=== PATIENT | female | born 1985 | race American Indian/Alaskan Native ===

== ENCOUNTER 2018-08-25 16:27 | Emergency (ER) | payer OTHER ==
[2018-08-25 17:27] VITALS: BMI 40.8
[2018-08-25] MEDS ORDERED: Sodium Chloride 0.9% 1,000 ML IV STA (17:41)
[2018-08-25 18:47] LABS: BASO # 0.02 K/mm3 (0.0-2.0); BASO % 0.2 % (0.0-3.0); EOS # 0.2 (0.0-0.7); EOS % 2.2 % (1.5-5.0); GRAN # 6.13 (1.4-6.5); GRAN % 69.5 % (50.0-68.0); HEMOGLOBIN 15.3 g/dL (12.0-16.0); LYMPH % 22.9 % (22.0-35.0); MEAN CELL VOLUME 88.3 fl (80.0-105.0); MEAN CORPUSCULAR HEMOGLOBIN 29.7 pg (25.0-35.0); MEAN CORPUSCULAR HGB CONC 33.6 g/dl (31.0-37.0); MEAN PLATELET VOLUME 10.8 fl (7.0-11.0); MONO # 0.5 (0.1-0.6); MONO % 5.2 % (1.0-6.0); RBC 5.15 10^6/uL (3.5-6.1); RED CELL DISTRIBUTION WIDTH 13.2 % (11.5-14.5); WHITE BLOOD COUNT 8.8 10^3/ul (4.5-11.0)
[2018-08-25 19:00] LABS: ALB/GLOB RATIO 1.3 (1.1-1.8); ALT/SGPT 43 U/L (7-56); AST/SGOT 36 U/L (14-36); BLOOD UREA NITROGEN 7 mg/dL (7-21); CALCIUM 9.6 mg/dL (8.4-10.5); GFR NON-AFRICAN AMERICAN > 60
[2018-08-25 19:10] LABS: TROPONIN I < 0.01 ng/mL
--- NOTE | 2018-08-25 19:25 | ED PDOC ---
Arrival/HPI <Lester Weir - Last Filed: 08/25/18 22:01> - General Historian: Patient <Flaco Dang A - Last Filed: 08/26/18 17:24> - General Chief Complaint: Dizziness/Lightheaded Time Seen by Provider: 08/25/18 17:11 - History of Present Illness Narrative History of Present Illness (Text): 08/25/18 19:22 33yo morbidly obese female with no pmhx who is s/p gastric sleeve #11days present with complaining of dizziness. States she was instructed to drink plenty of fluid,s but has been sleeping a lot, preventing her to drink fluids and thinks she is dehydrated. she has reported nausea that started for days now. states she spoke with her surgeon and was instructed to go to a nearby hospital to be evaluated for possible dehydration. She however denies abdominal pain, fev er, chills, discharge from surgry site, headache, chest pain, SOB, diaphoresis, Le edmea, calf pain, visual cahnges, any otehr complaint. (Lester Weir) 08/25/18 19:22 33yo morbidly obese female with no pmhx who is s/p gastric sleeve #11days present with complaining of dizziness. States she was instructed to drink plenty of fluid,s but has been sleeping a lot, preventing her to drink fluids and thinks she is dehydrated. she has reported nausea that started for days now. states she spoke with her surgeon and was instructed to go to a nearby hospital to be evaluated for possible dehydration. She however denies abdominal pain, fever, chills, discharge from surgry site, headache, chest pain, SOB, diaphoresis, Le edmea, calf pain, visual cahnges, any otehr complaint. (Flaco Dang A) Past Medical History - Provider Review Nursing Documentation Reviewed: Yes - Psychiatric Hx Substance Use: No - Surgical History Hx Cholecystectomy: Yes <Flaco Dang - Last Filed: 08/26/18 17:24> Family/Social History - Physician Review Nursing Documentation Reviewed: Yes Family/Social History: Unknown Family HX Smoking Status: Former Smoker Hx Alcohol Use: No Hx Substance Use: No <Flaco Dang A - Last Filed: 08/26/18 17:24> Allergies/Home Meds <Imm,Lester T - Last Filed: 08/25/18 22:01> <Flaco Dang A - Last Filed: 08/26/18 17:24> Allergies/Adverse Reactions: Allergies No Known Allergies Allergy (Verified 08/25/18 17:26) Home Medications: Home Meds Medication Instructions Recorded Confirmed RX: No Known Home Med 08/25/18 08/25/18 Review of Systems - Physician Review All systems were reviewed & negative as marked: Yes - Review of Systems Constitutional: Normal Eyes: Normal ENT: Normal Respiratory: Normal Cardiovascular: Normal Gastrointestinal: Normal Genitourinary Female: Normal Musculoskeletal: Normal Skin: Normal Neurological: Dizziness Endocrine: Normal Hemo/Lymphatic: Normal Psychiatric: Normal <Flaco Dang A - Last Filed: 08/26/18 17:24> Physical Exam Vital Signs Reviewed: Yes Temperature: Afebrile Blood Pressure: Normal Pulse: Regular Respiratory Rate: Normal Appearance: Positive for: Well-Appearing, Non-Toxic, Comfortable Pain Distress: None Mental Status: Positive for: Alert and Oriented X 3 - Systems Exam Head: Present: Atraumatic, Normocephalic Pupils: Present: PERRL Extroacular Muscles: Present: EOMI Conjunctiva: Present: Normal Mouth: Present: Moist Mucous Membranes Neck: Present: Normal Range of Motion Respiratory/Chest: Present: Clear to Auscultation, Good Air Exchange. No: Respiratory Distress, Accessory Muscle Use Cardiovascular: Present: Regular Rate and Rhythm, Normal S1, S2. No: Murmurs Abdomen: No: Tenderness, Distention, Peritoneal Signs Back: Present: Normal Inspection Upper Extremity: Present: Normal Inspection. No: Cyanosis, Edema Lower Extremity: Present: Normal Inspection. No: Edema Neurological: Present: GCS=15, CN II-XII Intact, Speech Normal, Motor Func Grossly Intact, Normal Sensory Function, Normal Cerebellar Funct, Norm Deep Tendon Reflexes, Gait Normal, Memory Normal, Normal 2Pt Descrimination, Other (No focal neurological deficit) Skin: Present: Warm, Dry, Normal Color. No: Rashes Psychiatric: Present: Alert, Oriented x 3, Normal Insight, Normal Concentration <Flaco Dang A - Last Filed: 08/26/18 17:24> Vital Signs Temp Pulse Resp BP Pulse Ox 08/25/18 22:12 62 17 127/78 100 08/25/18 20:07 98.3 F 60 18 121/82 100 Medical Decision Making <Lester Wier T - Last Filed: 08/25/18 22:01> <Flaco pollock - Last Filed: 08/26/18 17:24> ED Course and Treatment: 08/26/18 17:22 PT presented for stated history. she was not in any distress. Neurologically intact. Lab was ordered and unremarkable UA - Ketones. No sign of infection She was hydrated. Result was DW the pt. She was advised to f/u with her surgeon, drink plenty of fluid and start her prescribed vitamin. (Flaco Dang) - Lab Interpretations Lab Results: 08/25/18 18:34 08/25/18 18:34 Lab Results 08/25/18 19:50: Urine Color Dark yellow, Urine Appearance Clear, Urine pH 6.0, Ur Specific [place] >= 1.030, Urine Protein 30 H, Urine Glucose (UA) Negative, Urine Ketones >=80, Urine Blood Negative, Urine Nitrate Negative, Urine Bilirubin Moderate H, Urine Urobilinogen 1.0 H, Ur Leukocyte Esterase Negative, Urine RBC Negative, Urine WBC Negative, Ur Epithelial Cells 1 - 3, Urine Bacteria Trace 08/25/18 18:34: Sodium 139, Potassium 4.0, Chloride 100, Carbon Dioxide 24, Anion Gap 19, BUN 7, Creatinine 0.8, Est GFR ( Amer) > 60, Est GFR (Non- Af Amer) > 60, Random Glucose 78, Calcium 9.6, Magnesium 2.1, Total Bilirubin 0.8, AST 36, ALT 43, Alkaline Phosphatase 70, Lactate Dehydrogenase 547, Total Creatine Kinase 116, Troponin I < 0.01, Total Protein 8.8 H, Albumin 5.0 H, Globulin 3.9, Albumin/Globulin Ratio 1.3 08/25/18 18:34: WBC 8.8, RBC 5.15, Hgb 15.3, Hct 45.5, MCV 88.3, MCH 29.7, MCHC 33.6, RDW 13.2, Plt Count 312, MPV 10.8, Gran % 69.5 H, Lymph % (Auto) 22.9, [place] % (Auto) 5.2, Eos % (Auto) 2.2, Baso % (Auto) 0.2, Gran # 6.13, Lymph # (Auto) 2.0, [place] # (Auto) 0.5, Eos # (Auto) 0.2, Baso # (Auto) 0.02 - Medication Orders Current Medication Orders: Discontinued Medications Sodium Chloride (Sodium Chloride 0.9%) 1,000 mls @ 999 mls/hr IV .Q1H1M STA Stop: 08/25/18 18:41 Last Admin: 08/25/18 18:29 Dose: 999 mls/hr eMAR Start Stop Document 08/25/18 18:29 [email or web address] (Rec: 08/25/18 18:32 [email or web address] [id number]) Intravenous Solution Start Date 08/25/18 Start Time 18:32 Disposition/Present on Arrival - Present on Arrival Any Indicators Present on Arrival: No - Disposition Have Diagnosis and Disposition been Completed?: Yes Disposition Time: 22:01 Patient Plan: Discharge <Lester Weir - Last Filed: 08/25/18 22:01> - Present on Arrival Any Indicators Present on Arrival: No History of DVT/PE: No History of Uncontrolled Diabetes: No Urinary Catheter: No History of Decub. Ulcer: No History Surgical Site Infection Following: None - Disposition Have Diagnosis and Disposition been Completed?: Yes <Flaco Dang - Last Filed: 08/26/18 17:24> - Disposition Diagnosis: Lightheadedness Disposition: HOME/ ROUTINE Condition: STABLE Discharge Instructions (ExitCare): Dehydration, Adult (DC) Forms: [employer] ([place])
[2018-08-25 19:55] LABS: URINE BILIRUBIN MODERATE (NEGATIVE); URINE BLOOD NEGATIVE (NEGATIVE); URINE GLUCOSE (UA) NEGATIVE (NEGATIVE); URINE LEUKOCYTE ESTERASE NEGATIVE Leu/uL (NEGATIVE); URINE PROTEIN 30 mg/dL (<30 mg/dL)
[2018-08-25 19:56] LABS: URINE APPEARANCE CLEAR (CLEAR); URINE COLOR DARK YELLOW (YELLOW)
[2018-08-25 20:04] LABS: URINE BACTERIA TRACE (NEG); URINE RBC NEGATIVE /hpf (0-2); URINE WBC NEGATIVE /hpf (0-6)
[2018-08-25 20:08] VITALS: TEMP 98.3; O2SAT 100
[2018-08-25 23:36] VITALS: BP 127/78; PULSE 62; RESP 17
== END 2018-08-25 22:12 | disposition home or self-care (01) ==
LOC: ED 16:27
DX: R42 Dizziness and giddiness (principal); E66.01 Morbid (severe) obesity due to excess calories; Z87.891 Personal history of nicotine dependence
CPT/HCPCS: 80053; 81001; 82550; 83615; 83735; 84484; 85025; 99285; J7030